=== PATIENT | male | born 1980 | race Hispanic/Latino ===

== ENCOUNTER 2025-02-17 20:13 | Emergency (ER) | payer SELFPAY ==
[2025-02-17 20:19] VITALS: BP 122/77
[2025-02-17 20:52] LABS: Hematocrit 44.0 % (39.0-52.0); Hemoglobin 15.4 g/dL (13.0-18.0); Mean Corp Hgb Conc. 35.0 g/dL (33.0-37.0); Mean Corpuscular Volume 85.8 fL (80.0-94.0); Nucleated Red Blood Cells % 0 % (-); Platelet Count 307 10^3/uL (130-400); Red Cell Dist. Width 12.9 % (11.5-14.5)
[2025-02-17 21:02] LABS: COVID-19 Antigen Negative (Negative)
[2025-02-17 21:04] LABS: ALT (SGPT) 41 U/L (0-50); AST (SGOT) 25 U/L (17-59); Albumin 4.3 g/dl (3.5-5.0); Alkaline Phosphatase 69 U/L (38-126); Blood Urea Nitrogen 17 mg/dl (9-20); Calcium 8.9 mg/dl (8.4-10.2); Carbon Dioxide 27 mmol/L (22-30); Chloride 103 mmol/L (98-107); Glucose 103 mg/dl (70-99); Potassium 4.1 mmol/L (3.5-5.1); Sodium 136 mmol/L (135-145); Total Protein 7.0 g/dl (6.3-8.2); eGFR > 60.00
[2025-02-17 21:10] LABS: Troponin I < 0.012 ng/ml
--- NOTE | 2025-02-17 22:37 | ED.GENMED ---
History of Present Illness
General
Chief Complaint: Breathing Problem
Time Seen by Provider: 02/17/25 22:37
History of Present Illness
History of Present Illness:
FOCUSED PAST MEDICAL HISTORY
- Asthma
REVIEW OF OLD RECORDS
- No old records available for review in [facility]
Note:
CHIEF COMPLAINT(S)
Shortness of breath and nasal congestion.
Of note dog raiser services via iPad were used for video support
HISTORY OF PRESENT ILLNESS
The patient is a 44-year-old male presenting with difficulty breathing and nasal symptoms. He describes the sensation of being unable to breathe comfortably through his nose and throat, feeling as if his airways are congested. He reports a previous
history of asthma, which he believes might be exacerbated by current conditions or allergies. Although he does not have a home nebulizer, he mentioned past use of a nebulizer treatment, which he found beneficial. He requests a nebulizer treatment
and reports that last time he was seen for similar symptoms, he received one. Upon examination, his throat appears slightly red, although no pus is observed. He did not exhibit wheezing upon auscultation in the office, but he expresses feelings of
inhaling warm air and discomfort related to environmental allergens, such as pollen. Previous treatments have included loratadine for allergy management. He has not indicated prior use of oral corticosteroids but is open to a trial to reduce airway
inflammation.
PHYSICAL EXAM
- General: Very prominent amount of coughing
- HEENT: Moist oral mucosa
- Cardiovascular: No murmurs, normal heart rate, regular rhythm, No chest wall tenderness
- Pulmonary: No respiratory distress, prominent coughing, breath sounds are somewhat decreased without wheeze
- Abdomen: Soft with no peritoneal signs, no tenderness
- Neurologic: Excellent strength all extremities, no coordination deficits
- Psychiatric: Appropriate mental status, normal insight and judgement
- Extremities: Nontender, no edema, moves all extremities equally
- Skin: No rash, no lesions
PLAN
1. Administered in-office nebulizer treatment for immediate relief of symptoms.
2. Prescribed a course of oral steroids to reduce airway inflammation.
3. Prescribed nebulizer solution for home use, to be collected from the patients designated pharmacy.
4. Continue loratadine for allergy management.
5. Prescriptions sent to the pharmacy located at [facility].
DIFFERENTIAL DIAGNOSIS
The Differential Diagnosis includes, in no particular order and is not limited to:
1. Asthma exacerbation
2. Allergic rhinitis
3. Upper respiratory infection
4. Chronic obstructive pulmonary disease (COPD)
5. Viral upper respiratory infection
6. Sinusitis
7. Environmental allergy
8. Influenza
9. Bronchitis
10. Pneumonia
SUMMARY OF ENCOUNTER
The patient, a 44-year-old male, presented to the emergency department with complaints of shortness of breath and nasal congestion. The patient reported a sensation of difficulty breathing through the nose and throat, with a previous history of
asthma possibly exacerbated by allergies or current conditions such as pollen exposure. Examination noted a slightly red throat with no pus or wheezing. Considering the patients reports and medical history, a viral syndrome or allergic reaction was
deemed a potential cause, but pneumonia was unlikely based on normal white cell count and afebrile status. To provide symptomatic relief and address possible asthma exacerbation, the patient was administered an in-office nebulizer treatment (Duoneb)
and a course of oral steroids was prescribed.
PLAN
1. Administered in-office nebulizer treatment (Duoneb) for immediate symptomatic relief.
2. Prescribed a course of oral corticosteroids for airway inflammation reduction.
3. Continue loratadine for allergy management.
MEDICATION RECONCILIATION
Administered:
- Duoneb nebulizer treatment in office.
Prescribed:
- Oral corticosteroids for airway inflammation management.
- Loratadine for ongoing allergic symptoms.
MEDICAL DECISION MAKING
-Complexity of Data Reviewed: Chronic conditions affecting care including asthma. Differential diagnosis includes asthma exacerbation, allergic rhinitis, upper respiratory infection, and environmental allergy.
-Data:
Category 1
- Non-emergency department records reviewed for previous treatments and medication history.
- Clinical information was obtained from the patient indicating previous beneficial response to nebulizer treatments.
-Risk:
Prescription medication was prescribed for management of possible asthma exacerbation or allergy-related symptoms.
DIAGNOSIS
- Asthma exacerbation (ICD-10: J45.901)
- Allergic rhinitis due to pollen (ICD-10: J30.1)
EKG
- Sinus 78, no acute ST abnormality no old
LABS
- CBC and chemistries unremarkable, COVID and flu negative
UPDATE
- H/o asthma and allergies
- Slightly decreased breath sounds, but no wheeze
- Most prominent exam finding is frequent cough
- Suspect RAD; doubt pneumonia based on exam
- Steroids/nebs
Phy Exam
Physical Exam
Physical Exam:
See HPI
Course
Orders/Labs/Results
Orders:
Orders
02/17/25 20:25
Electrocardiogram (*1) Urgent
Reason for Study: Chest Pain
EKG- Treatment ONCE
02/17/25 20:35
COVID-19 Antigen Urgent
Source: Nasal Swab
Complete Blood Count/With Diff Urgent
Comprehensive Metabolic Panel Urgent
Troponin I Urgent
INF RAPID [Influenza A+B Rapid Molecular] Urgent
ROSS Source: Nasal Swab
Specimen Description:
02/17/25 23:02
Ipratropium/Albuterol Sulfate [Duoneb] 3 ml INH R NOW STA
Prednisone [Deltasone] 50 mg PO NOW STA
Abnormal Lab Results
02/17/25
20:35
MPV 10.6 H fL
(7.4-10.4)
Absolute Monos (auto) 0.9 H 10^3/uL
(0.1-0.6)
Monocytes % 17.2 H %
(1.7-9.3)
Glucose 103 H mg/dl
(70-99)
02/17/25 20:35
02/17/25 20:35
Vital Signs
Initial and Last Documented VS:
Initial Vital Signs
Temp Pulse Resp BP Pulse Ox
37.1 C 85 20 122/77 98
02/17/25 20:19 02/17/25 20:19 02/17/25 20:19 02/17/25 20:19 02/17/25 20:19
Last Documented Vital Signs
Temp Pulse Resp BP Pulse Ox
37.1 C 85 20 122/77 98
02/17/25 20:19 02/17/25 20:19 02/17/25 20:19 02/17/25 20:19 02/17/25 22:38
*Pulse Oximetry
SaO2: 98
Oxygen Mode of Delivery: Room air
Patient hypoxic: no
*Critical Care Note
Total Time (30-74mins, 75-104mins- exclusive of procedures): Not Applicable
ED Attending Note
-
Portions of this chart may have been created with voice recognition software.� Occasional wrong word or��sound alike� substitutions may have occurred due to the inherent limitations of voice recognition software.
Discharge Plan
Departure
Patient Disposition: Home (Routine Discharge)
Date of Disposition: 02/17/25
Time of Disposition: 23:03
Patient with high blood pressure during this ER visit?: Yes
Discharge Problem:
Reactive airway disease
Instructions: Shortness of Breath (Dyspnea) (DC)
Prescriptions:
New
albuterol sulfate 2.5 mg /3 mL (0.083 %) solution for nebulization
2.5 mg inhalation QID PRN (Reason: shortness of breath or wheezing) Qty: 90 0RF
prednisone 50 mg tablet
50 mg PO DAILY Qty: 4 0RF
Referrals:
NONE,* [Family Provider, Internal Medicine]
Activity Restrictions/Additional Instructions:
Los ruidos respiratorios est�n ligeramente disminuidos, deshawn no presenta sibilancias. Le envi� sophy receta de albuterol para nebulizador y prednisona a la farm[facility] [address] [facility] en [place]. Regrese si empeora.
Interventions
Interventions:
*Risk Screen - Suicide Last Done: 02/17/25 20:19
*ED Influenza Vaccine History Last Done: 02/17/25 20:19
Discharge Date and Time
Print Language: MONGOLIAN
[2025-02-17 23:08] VITALS: BP 100/73
[2025-02-17 23:13] VITALS: BMI 31.4
[2025-02-17] MEDS: DELTASONE 50 MG PO (23:16)
[2025-02-17] MEDS: DUONEB 3 ML INH (23:17)
== END 2025-02-17 23:56 | disposition home or self-care (01) ==
LOC: EMR 20:13
PROVIDERS: Student in an Organized Health Care Education/Training Program; EMERGENCY PHYSICIAN Emergency Medicine
DX: J45.901 Unspecified asthma with (acute) exacerbation (principal); J30.1 Allergic rhinitis due to pollen
CPT/HCPCS: 94640; 99284; 80053; 84484; 85025; 87502; 87811; 93005